=== PATIENT | female | born 1990 | race Caucasian/White ===

== ENCOUNTER 2021-01-13 07:16 | Inpatient (IN) | payer MEDICAID ==
[2021-01-13] MEDS ORDERED: Misoprostol 50 MCG (1/2 of 100 MCG) Tab VAG ONE (08:00)
[2021-01-13] MEDS ORDERED: Sodium Chloride 0.9% 10 ML Syringe FLUSH PRN ×2 (08:24→14:17)
[2021-01-13] MEDS ORDERED: ePHEDrine 50 MG/ML SDV IVPUSH PRN (08:29)
[2021-01-13] MEDS ORDERED: Lactated Ringers 1,000 ML IV ONE (08:29)
--- NOTE | 2021-01-13 08:34 | PCM.LDHP ---
L&D History of Present Illness - General Date of Service: 01/13/21 Admit Problem/Dx: Patient Status Order with Admit Dx/Problem 01/13/21 08:24 Patient Status [ADT] Routine Admission Diagnosis/Problem Admission Diagnosis/Problem Source of Information: Patient History Limitations: Reports: No Limitations - History of Present Illness Introduction:: 30 year old 40 5/7 weeks presents for planned induction of labor. She was brad today and she was up last night with contractions. adequate care Labs GBS neg ABO B pos HIV NEg Had covid vaccine during reactive NST this morning, Cat one strip Timing/Duration: Reports: minutes: (12) Location, : Reports: Abdomen Severity: Mild Improves with: Reports: None Worsens with: Reports: None - Related Data Allergies/Adverse Reactions: Allergies Allergy/AdvReac Type Severity Reaction Status Date / Time aspirin Allergy Facial Verified 01/13/21 08:11 Swelling ibuprofen Allergy Facial Verified 01/13/21 08:11 Swelling Home Medications: Home Meds Vits #93/Iron Fum/FA [ Formula Tablet] 1 each PO DAILY 01/13/21 [History] valACYclovir [Valtrex] 1,000 mg PO BID 01/13/21 [History] Past Medical History - Past Health History Medical/Surgical History: Denies Medical/Surgical History HEENT History: Reports: None Cardiovascular History: Reports: None Respiratory History: Reports: None Gastrointestinal History: Reports: None Genitourinary History: Reports: None 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: None, : 2 Para: 1 LMP (Approximate): (CORWIN 01/08/21) Musculoskeletal History: Reports: None Neurological History: Reports: Other (See Below) Other Neuro History: Aura headaches Psychiatric History: Reports: None Endocrine/Metabolic History: Reports: None Hematologic History: Reports: None Immunologic History: Reports: None Oncologic (Cancer) History: Reports: None Dermatologic History: Reports: None - Infectious Disease History Infectious Disease History: Reports: None - Past Surgical History Head Surgeries/Procedures: Reports: None HEENT Surgical History: Reports: None Cardiovascular Surgical History: Reports: None GI Surgical History: Reports: None Female Surgical History: Reports: None Neurological Surgical History: Reports: None Musculoskeletal Surgical History: Reports: None Social & Family History - Family History Family Medical History: Unobtainable - Tobacco Use Tobacco Use Status *Q: Never Tobacco User Second Hand Smoke Exposure: No - Caffeine Use Caffeine Use: Reports: Coffee - Recreational Drug Use Recreational Drug Use: No H&P Review of Systems - Review of Systems: Review Of Systems: See Below General: Reports: No Symptoms HEENT: Reports: No Symptoms Pulmonary: Reports: No Symptoms Cardiovascular: Reports: No Symptoms Gastrointestinal: Reports: No Symptoms Genitourinary: Reports: No Symptoms Musculoskeletal: Reports: No Symptoms Skin: Reports: No Symptoms Psychiatric: Reports: No Symptoms Neurological: Reports: No Symptoms Hematologic/Lymphatic: Reports: No Symptoms Immunologic: Reports: No Symptoms L&D Exam - Exam Exam: See Below - Vital Signs Vital Signs: Last Vital Signs Temp 97.8 F 01/13/21 07:46 Pulse 72 01/13/21 08:19 Resp 18 01/13/21 08:19 BP 116/61 01/13/21 08:19 Pulse Ox 96 01/13/21 08:19 Weight: 185 lb - OB Specific Contraction Duration (sec): 60 Contraction Frequency (min): 12 Contraction Intensity: Irritability Movement: Active Heart Tones: Present Heart Rate (FHR) Variability: Moderate (6-25 bmp) Presentation: Vertex - Jordan Score Jordan Score Cervix Position: Posterior Jordan Score Consistency: Soft Jordan Score Effacement: 51-70% Jordan Score Dilation: Closed (hard to reach cervix she is so far posterior) Jordan Score Infant's Station: -1 ,0 Jordan Score Total: 6 - Exam General: Alert, Oriented HEENT: PERRLA Neck: Supple Lungs: Clear to Auscultation, Normal Respiratory Effort Cardiovascular: Regular Rate, Regular Rhythm GI/Abdominal Exam: Normal Bowel Sounds Rectal Exam: Normal Exam Genitourinary: Normal external exam, Enlarged uterus Back Exam: Normal Inspection, Full Range of Motion Extremities: No Pedal Edema, Normal Capillary Refill Skin: Warm Neurological: Cranial Nerves Intact Psychiatric: Alert, Normal Affect, Normal Mood - Patient Data Lab Results Last 24 hrs: Laboratory Results - last 24 hr 01/13/21 Range/Units 07:41 WBC 9.8 (4.5-11.0) K/uL RBC 4.02 (3.30-5.50) M/uL Hgb 12.5 (12.0-15.0) g/dL Hct 36.2 (36.0-48.0) % MCV 90 (80-98) fL MCH 31 (27-31) pg MCHC 35 (32-36) % Plt Count 274 (150-400) K/uL Neut % (Auto) 72.2 H (36-66) % Lymph % (Auto) 18.4 L (24-44) % [place] % (Auto) 7.7 H (2-6) % Eos % (Auto) 1.4 L (2-4) % Baso % (Auto) 0.3 (0-1) % Result Diagrams: 01/13/21 07:41 - Problem List (1) Elective induction of labor planned SNOMED Code(s): 559608062 ICD Code: [id number] - Status: Acute Current Visit: Yes (2) SNOMED Code(s): 88096327 ICD Code: Z34.90 - ENCNTR FOR SUPRVSN OF NORMAL , UNSP, UNSP TRIMESTER Status: Acute Current Visit: Yes Qualifiers: Weeks of gestation: 40 weeks Qualified Code(s): Z3A.40 - 40 weeks gestation of Problem List Initiated/Reviewed/Updated: Yes Orders Last 24hrs: Active Orders 24 hr Category Date Time Status Patient Status [ADT] Routine ADT 01/13/21 08:24 Ordered Antiembolic Devices [RC] .Routine Care 01/13/21 08:27 Ordered Communication Order [RC] ASDIRECTED Care 01/13/21 08:24 Ordered Communication Order [RC] ASDIRECTED Care 01/13/21 08:29 Ordered Heart Tones [RC] PER UNIT ROUTINE Care 01/13/21 08:24 Ordered Non Stress Test [RC] Click to Edit Care 01/13/21 08:24 Ordered Insert Urinary Catheter [OM.PC] ASDIRECTED Care 01/13/21 08:30 Ordered Local Anesthetic Infusion Pump [RC] ASDIRECTED Care 01/13/21 08:29 Ordered Notify Provider Vital Signs [RC] PRN Care 01/13/21 08:24 Ordered Notify Provider [RC] PRN Care 01/13/21 08:24 Ordered PCEA Epidural [RC] ASDIRECTED Care 01/13/21 08:29 Ordered PCEA Epidural [RC] ASDIRECTED Care 01/13/21 08:29 Ordered Up ad Brandy [RC] ASDIRECTED Care 01/13/21 08:24 Ordered Urinary Catheter Assessment [RC] ASDIRECTED Care 01/13/21 08:29 Ordered VTE/DVT Education [RC] Click to Edit Care 01/13/21 08:27 Ordered Vital Signs [RC] PER UNIT ROUTINE Care 01/13/21 08:24 Ordered Clear Liquid Diet [DIET] Diet 01/13/21 Lunch Ordered CORONAVIRUS COVID-19, VICKI Routine Lab 01/13/21 07:41 Ordered DRUG SCREEN, URINE [URCHEM] Routine Lab 01/13/21 07:41 Ordered UA W/MICROSCOPIC [URIN] Routine Lab 01/13/21 07:41 Ordered Lactated Ringers [Ringers, Lactated] 1,000 ml Med 01/13/21 08:29 Ordered IV .BOLUS Oxytocin/Normal Saline [Pitocin in NS 20 Units/1,000 ML Med 01/13/21 08:28 Ordered ] 20 unit in 1,000 ml IV ONETIME Sodium Chloride 0.9% [Saline Flush] Med 01/13/21 08:24 Ordered 10 ml FLUSH ASDIRECTED PRN ePHEDrine [ePHEDrine sulfate] Med 01/13/21 08:29 Ordered 10 mg IVPUSH ASDIRECTED PRN DVT/VTE Prophylaxis Reflex [OM.PC] Routine Oth 01/13/21 08:24 Ordered Epidural Catheter Management [OM.PC] Urgent Oth 01/13/21 08:29 Ordered Saline Lock Insert [OM.PC] Routine Oth 01/13/21 08:24 Ordered Resuscitation Status Routine Resus Stat 01/13/21 08:24 Ordered Medication Orders Oxytocin/Sodium Chloride (Pitocin In Ns 20 Units/1,000 Ml) 20 unit in 1,000 mls @ 999 mls/hr IV ONETIME ONE; Protocol Stop: 01/13/21 09:28 Sodium Chloride (Sodium Chloride 0.9% 10 Ml Syringe) 10 ml FLUSH ASDIRECTED PRN PRN Reason: Keep Vein Open Assessment/Plan Comment:: 01/13/21 30 year old presents for induction of labor. She is 40 5/7 weeks today and has been brad since last night. Baby is low and she wants to be done. HGB 12.8 PLT 236 Had covid vaccine plans to breast feed Plan Miso 50 mcg this morning, reassess at noon Wants an epidural late Plan for vaginal delivery
[2021-01-13] MEDS ORDERED: Ondansetron 4 MG/2 ML SDV IVPUSH PRN (11:05)
--- NOTE | 2021-01-13 12:12 | PCM.PNLD ---
Labor Progress Note - VS & Meds Vital Signs: Last Vital Signs Temp 97.2 F 01/13/21 11:07 Pulse 84 01/13/21 11:07 Resp 18 01/13/21 11:07 BP 125/58 L 01/13/21 11:07 Pulse Ox 99 01/13/21 11:07 Active Medications: Current Medications Ephedrine Sulfate (Ephedrine 50 Mg/Ml Sdv) 10 mg IVPUSH ASDIRECTED PRN PRN Reason: Hypotension Ondansetron HCl (Ondansetron 4 Mg/2 Ml Sdv) 4 mg IVPUSH Q4H PRN PRN Reason: Nausea/Vomiting Last Admin: 01/13/21 11:14 Dose: 4 mg Documented by: Sodium Chloride (Sodium Chloride 0.9% 10 Ml Syringe) 10 ml FLUSH ASDIRECTED PRN PRN Reason: Keep Vein Open Discontinued Medications Oxytocin/Sodium Chloride (Pitocin In Ns 20 Units/1,000 Ml) 20 unit in 1,000 mls @ 999 mls/hr IV ONETIME ONE; Protocol Stop: 01/13/21 11:00 Lactated Ringer's (Ringers, Lactated) 1,000 mls @ 999 mls/hr IV .BOLUS ONE Stop: 01/13/21 09:29 Misoprostol (Misoprostol 50 Mcg (1/2 Of 100 Mcg) Tab) 50 mcg VAG ONETIME ONE Stop: 01/13/21 08:01 Last Admin: 01/13/21 08:15 Dose: 50 mcg Documented by: - Uterine Contractions Uterine Monitoring Mode: External [place] Contraction Frequency (min): 1-5.5 Contraction Duration (sec): 40-60 Contraction Intensity: Mild Uterine Resting Tone: Soft - Monitoring Monitor Mode: Doppler/Auscultation Heart Rate (FHR) Baseline: 130 Heart Rate (FHR) Variability: Moderate (6-25 bmp) Accelerations: Present, 15x15 Decelerations: None Strip Review: Category I - Vaginal Exam Dilation (cm): 3-4 Effacement (Percent): 80 Station: 0 Cervical Position: Anterior Sterile Vaginal Exam Performed By: Amelia Kemp Vaginal Exam Comment: nice progress since this morning - Labor Progress (Free Text) Labor Progress: Cat one strip active labor coping with contractions membranes stripped AROM at 1500 if no rupture on her own plan for vaginal delivery
[2021-01-13] MEDS ORDERED: Lactated Ringers 1,000 ML IV SCH (13:45)
[2021-01-13] MEDS ORDERED: diphenhydrAMINE 50 MG/ML SDV IVPUSH PRN ×2 (14:17)
[2021-01-13] MEDS ORDERED: Naloxone 0.4 MG/ML SDV IVPUSH PRN (14:17)
[2021-01-13] MEDS ORDERED: Ropivacaine 200 MG in Premix Bag 1 BAG EPIDUR SCH (14:30)
--- NOTE | 2021-01-13 15:22 | PCM.PNLD ---
Labor Progress Note - VS & Meds Vital Signs: Last Vital Signs Temp 97.2 F 01/13/21 11:07 Pulse 86 01/13/21 15:10 Resp 18 01/13/21 15:10 BP 113/68 01/13/21 15:10 Pulse Ox 100 01/13/21 15:10 Active Medications: Current Medications Diphenhydramine HCl (Diphenhydramine 50 Mg/Ml Sdv) 25 mg IVPUSH Q6H PRN PRN Reason: Itching Diphenhydramine HCl (Diphenhydramine 50 Mg/Ml Sdv) 50 mg IVPUSH Q6H PRN PRN Reason: Itching Ephedrine Sulfate (Ephedrine 50 Mg/Ml Sdv) 10 mg IVPUSH ASDIRECTED PRN PRN Reason: Hypotension Lactated Ringer's (Ringers, Lactated) 1,000 mls @ 100 mls/hr IV ASDIRECTED ISAÍAS Last Admin: 01/13/21 13:56 Dose: 100 mls/hr Documented by: Ropivacaine 200 mg/ Premix 100 mls @ 0 mls/hr EPIDUR ASDIRECTED ISAÍAS Naloxone HCl (Naloxone 0.4 Mg/Ml Sdv) 0.1 mg IVPUSH ASDIRECTED PRN PRN Reason: Oversedation Ondansetron HCl (Ondansetron 4 Mg/2 Ml Sdv) 4 mg IVPUSH Q4H PRN PRN Reason: Nausea/Vomiting Last Admin: 01/13/21 11:14 Dose: 4 mg Documented by: Sodium Chloride (Sodium Chloride 0.9% 10 Ml Syringe) 10 ml FLUSH ASDIRECTED PRN PRN Reason: Keep Vein Open Sodium Chloride (Sodium Chloride 0.9% 10 Ml Syringe) 10 ml FLUSH ASDIRECTED PRN PRN Reason: Keep Vein Open Discontinued Medications Lactated Ringer's (Ringers, Lactated) 1,000 mls @ 999 mls/hr IV .BOLUS ONE Stop: 01/13/21 09:29 Last Admin: 01/13/21 12:55 Dose: 999 mls/hr Documented by: Oxytocin/Sodium Chloride (Pitocin In Ns 20 Units/1,000 Ml) 20 unit in 1,000 mls @ 999 mls/hr IV ONETIME ONE; Protocol Stop: 01/13/21 14:30 Misoprostol (Misoprostol 50 Mcg (1/2 Of 100 Mcg) Tab) 50 mcg VAG ONETIME ONE Stop: 01/13/21 08:01 Last Admin: 01/13/21 08:15 Dose: 50 mcg Documented by: - Uterine Contractions Uterine Monitoring Mode: External [place] Contraction Frequency (min): 1.5-2.5 Contraction Duration (sec): 30-70 Contraction Intensity: Moderate Uterine Resting Tone: Soft - Monitoring Monitor Mode: Doppler/Auscultation Heart Rate (FHR) Baseline: 130 Heart Rate (FHR) Variability: Moderate (6-25 bmp) Accelerations: Present, 15x15 Decelerations: None Strip Review: Category I - Vaginal Exam Dilation (cm): 5-6 Effacement (Percent): 80 Station: 0 Cervical Position: Anterior Sterile Vaginal Exam Performed By: Amelia Kemp Vaginal Exam Comment: AROM clear fluid blood show - Labor Progress (Free Text) Labor Progress: epidural placed doing great
[2021-01-13] MEDS ORDERED: Ropivacaine 100 ML ONE (15:30)
--- NOTE | 2021-01-13 15:48 | ANES ---
DATE OF SERVICE: 01/13/2021 INDICATION: Samira is a 30-year-old female in Obstetric Unit. I was requested by Amelia Kemp to consult patient for labor epidural placement. Upon review of patient's history and procedure, she was okay to proceed and consent was received. DESCRIPTION OF PROCEDURE: I had her seated at the edge of the bed. Betadine prep x3 to lumbar region. Sterile drape was placed, 1% lidocaine skin wheal as well as deep at the L3- L4 region. 17-gauge Tuohy was placed to loss of resistance. Negative CSF, negative heme, negative paresthesia. I placed a silicone catheter to 13 cm. Test dose was given through that catheter 3 mL of 1.5% lidocaine and 1:200,000 epinephrine. The catheter was then secured. I placed her in a supine position and dosed her with 12 mL of 0.2% ropivacaine and began an infusion of that same 0.2% ropivacaine. The patient tolerated procedure quite well. Please refer to nurse's notes for vital signs and neuro status, which were unchanged and within normal limits. Again, she tolerated it quite well. Xiang Wellington CRNA /[id number]
[2021-01-13] MEDS ORDERED: Hydrocortisone 2.5% Crm 30 GM Tube TOP PRN (16:34)
--- NOTE | 2021-01-13 16:47 | PCM.DEL ---
L & D Note - General Info Date of Service: 01/13/21 Mother's Due Date: 01/08/21 - Delivery Note Labor: Spontaneous Cervical Ripening Method: Misoprostil Delivery Outcome: Livebirth Delivery Method: Spontaneous Vaginal Delivery-Single Infant Delivery Mode: Spontaneous Presentation: Vertex Nuchal Cord: None Anesthesia Type: Epidural Amniotic Fluid Description: Clear Episiotomy Type: None Laceration: None Placenta: Intact, Spontaneous Cord: 3 Vessels Resuscitation Needed: No [place]: Bulb Syringe, Stimulated, Warmed, [place] Used Provider: Amelia Kemp Score 1 min: 8 (color) Score 5 min: 9 (color) Second Stage Interventions: Reports: Laboring Down, Pushing Effectively Delivery Comments (Free Text/Narrative):: This 30 year old G2 now P2 who is 40 5/7 weeks gestation delivered via a viable male infant over an intact perineum at 1607 in LEÓN position with his right hand presenting. He was placed on mother's chest where he cried s pontaneously. He was dried and stimulated, Delayed cord clamping was done and active management of the third stage was also used. The placenta was expressed spontaneously intact, Ham. Three vessel cord 's of 8 and 9 all for color. No lacerations of the perineum, vagina, rectum or cervix were found. EBL 50cc weight 7-1 Mother and baby to post in stable condition First stage 1181-4494 Second stage 5677-5102 Third stage 4255-9026 Induction Criteria - Jordan Score Jordan Score Dilation: Closed Jordan Score Effacement: 60-70% Jordan Score 's Station: -1 ,0 Jordan Score Consistency: Soft Jordan Score Cervix Position: Midposition Jordan Score Total: 7 Jordan Score Presenting Part: Reports: Cephalic - Induction Gestational Age >/= 39 wks: Yes Estimated Pelvis: Reports: Adequate Reassuring Monitoring Strip: Yes Absence of Tachy Systole: Yes - General Info Date of Service: 01/13/21 Admission Dx/Problem (Free Text): Patient Status Order with Admit Dx/Problem 01/13/21 08:24 Patient Status [ADT] Routine Admission Diagnosis/Problem Admission Diagnosis/Problem Functional Status: Reports: Pain Controlled - Review of Systems General: Reports: No Symptoms HEENT: Reports: No Symptoms Pulmonary: Reports: No Symptoms Cardiovascular: Reports: No Symptoms Gastrointestinal: Reports: No Symptoms Genitourinary: Reports: No Symptoms Musculoskeletal: Reports: No Symptoms Skin: Reports: No Symptoms Neurological: Reports: No Symptoms Psychiatric: Reports: No Symptoms - Patient Data Vitals - Most Recent: Last Vital Signs Temp 97.2 F 01/13/21 11:07 Pulse 69 01/13/21 15:25 Resp 18 01/13/21 15:25 BP 115/57 L 01/13/21 15:25 Pulse Ox 100 01/13/21 15:25 Weight - Most Recent: 185 lb I&O - Last 24 Hours: Intake & Output 01/13/21 01/13/21 01/13/21 06:59 14:59 22:59 Intake Total 1119 Balance 1119 Lab Results Last 24 Hours: Laboratory Results - last 24 hr 01/13/21 01/13/21 01/13/21 Range/Units 07:41 07:41 07:41 WBC 9.8 (4.5-11.0) K/uL RBC 4.02 (3.30-5.50) M/uL Hgb 12.5 (12.0-15.0) g/dL Hct 36.2 (36.0-48.0) % MCV 90 (80-98) fL MCH 31 (27-31) pg MCHC 35 (32-36) % Plt Count 274 (150-400) K/uL Neut % (Auto) 72.2 H (36-66) % Lymph % (Auto) 18.4 L (24-44) % [place] % (Auto) 7.7 H (2-6) % Eos % (Auto) 1.4 L (2-4) % Baso % (Auto) 0.3 (0-1) % Urine Color Yellow (YELLOW) Urine Appearance Slightly cloudy A (CLEAR) Urine pH 7.0 (5.0-8.0) Ur Specific [place] >= 1.030 (1.008-1.030) Urine Protein Negative (NEGATIVE) mg/dL Urine Glucose (UA) Negative (NEGATIVE) mg/dL Urine Ketones Negative (NEGATIVE) mg/dL Urine Occult Blood Trace-intact H (NEGATIVE) Urine Nitrite Negative (NEGATIVE) Urine Bilirubin Negative (NEGATIVE) Urine Urobilinogen 0.2 (0.2-1.0) EU/dL Ur Leukocyte Esterase Trace H (NEGATIVE) Urine RBC 0-5 (0-5) Urine WBC 0-5 (0-5) Ur Epithelial Cells Moderate Amorphous Sediment Not seen Urine Bacteria Few Urine Mucus Moderate Urine Opiates Screen Negative (NEGATIVE) Ur Oxycodone Screen Negative (NEGATIVE) Urine Methadone Screen Negative (NEGATIVE) Ur Propoxyphene Screen Negative (NEGATIVE) Ur Barbiturates Screen Negative (NEGATIVE) Ur Tricyclics Screen Negative (NEGATIVE) Ur Phencyclidine Scrn Negative (NEGATIVE) Ur Amphetamine Screen Negative (NEGATIVE) U Methamphetamines Scrn Negative (NEGATIVE) Urine MDMA Screen Negative (NEGATIVE) U Benzodiazepines Scrn Negative (NEGATIVE) U Cocaine Metab Screen Negative (NEGATIVE) U Marijuana (THC) Screen Presumptive positive H (NEGATIVE) Med Orders - Current: Current Medications Diphenhydramine HCl (Diphenhydramine 50 Mg/Ml Sdv) 25 mg IVPUSH Q6H PRN PRN Reason: Itching Diphenhydramine HCl (Diphenhydramine 50 Mg/Ml Sdv) 50 mg IVPUSH Q6H PRN PRN Reason: Itching Ephedrine Sulfate (Ephedrine 50 Mg/Ml Sdv) 10 mg IVPUSH ASDIRECTED PRN PRN Reason: Hypotension Hydrocortisone (Hydrocortisone 2.5% Crm 30 Gm Tube) 1 gm TOP ASDIRECTED PRN PRN Reason: Itching Lactated Ringer's (Ringers, Lactated) 1,000 mls @ 100 mls/hr IV ASDIRECTED ISAÍAS Last Admin: 01/13/21 13:56 Dose: 100 mls/hr Documented by: Ropivacaine 200 mg/ Premix 100 mls @ 0 mls/hr EPIDUR ASDIRECTED ISAÍAS Naloxone HCl (Naloxone 0.4 Mg/Ml Sdv) 0.1 mg IVPUSH ASDIRECTED PRN PRN Reason: Oversedation Ondansetron HCl (Ondansetron 4 Mg/2 Ml Sdv) 4 mg IVPUSH Q4H PRN PRN Reason: Nausea/Vomiting Last Admin: 01/13/21 11:14 Dose: 4 mg Documented by: Sodium Chloride (Sodium Chloride 0.9% 10 Ml Syringe) 10 ml FLUSH ASDIRECTED PRN PRN Reason: Keep Vein Open Sodium Chloride (Sodium Chloride 0.9% 10 Ml Syringe) 10 ml FLUSH ASDIRECTED PRN PRN Reason: Keep Vein Open Witch Vilma (Witch Vilma Medicated Pads 100/Jar) 1 pad TOP ASDIRECTED ONE Stop: 01/13/21 16:35 Discontinued Medications Lactated Ringer's (Ringers, Lactated) 1,000 mls @ 999 mls/hr IV .BOLUS ONE Stop: 01/13/21 09:29 Last Admin: 01/13/21 12:55 Dose: 999 mls/hr Documented by: Oxytocin/Sodium Chloride (Pitocin In Ns 20 Units/1,000 Ml) 20 unit in 1,000 mls @ 999 mls/hr IV ONETIME ONE; Protocol Stop: 01/13/21 14:30 Ropivacaine (Naropin 0.2%) Confirm Administered Dose 100 mls @ as directed .ROUTE .STK-MED ONE Stop: 01/13/21 15:31 Misoprostol (Misoprostol 50 Mcg (1/2 Of 100 Mcg) Tab) 50 mcg VAG ONETIME ONE Stop: 01/13/21 08:01 Last Admin: 01/13/21 08:15 Dose: 50 mcg Documented by: - Exam General: Alert, Oriented HEENT: Pupils Equal Neck: Supple Lungs: Clear to Auscultation, Normal Respiratory Effort Cardiovascular: Regular Rate, Regular Rhythm GI/Abdominal Exam: Normal Bowel Sounds, Soft, Non-Tender, No Organomegaly, No Distention, No Abnormal Bruit (Female) Exam: Normal External Exam, Cervical Dilatation, Enlarged Uterus, Vaginal Bleeding Back Exam: Normal Inspection Extremities: Non-Tender, No Pedal Edema, Normal Capillary Refill Skin: Warm, Dry, Intact Wound/Incisions: Healing Well Neurological: No New Focal Deficit Psy/Mental Status: Alert, Normal Affect, Normal Mood - Problem List & Annotations (1) Elective induction of labor planned SNOMED Code(s): 729315104 Code(s): AVQ3973 - Status: Acute Current Visit: Yes (2) SNOMED Code(s): 85378487 Code(s): Z34.90 - ENCNTR FOR SUPRVSN OF NORMAL , UNSP, UNSP TRIMESTER Status: Acute Current Visit: Yes Qualifiers: Weeks of gestation: 40 weeks Qualified Code(s): Z3A.40 - 40 weeks gestation of (3) Vaginal delivery SNOMED Code(s): 687755003 Code(s): O80 - ENCOUNTER FOR FULL-TERM UNCOMPLICATED DELIVERY Status: Acute Current Visit: Yes - Problem List Review Problem List Initiated/Reviewed/Updated: Yes - My Orders Last 24 Hours: My Active Orders 01/13/21 08:24 Communication Order [RC] ASDIRECTED Heart Tones [RC] PER UNIT ROUTINE Non Stress Test [RC] Click to Edit Notify Provider Vital Signs [RC] PRN Notify Provider [RC] PRN Up ad Brandy [RC] ASDIRECTED Vital Signs [RC] PER UNIT ROUTINE Sodium Chloride 0.9% [Saline Flush] 10 ml FLUSH ASDIRECTED PRN DVT/VTE Prophylaxis Reflex [OM.PC] Routine Saline Lock Insert [OM.PC] Routine Resuscitation Status Routine 01/13/21 08:27 Antiembolic Devices [RC] .Routine VTE/DVT Education [RC] Click to Edit 01/13/21 08:29 Communication Order [RC] ASDIRECTED Local Anesthetic Infusion Pump [RC] ASDIRECTED PCEA Epidural [RC] ASDIRECTED Urinary Catheter Assessment [RC] ASDIRECTED ePHEDrine [ePHEDrine sulfate] 10 mg IVPUSH ASDIRECTED PRN Epidural Catheter Management [OM.PC] Urgent 01/13/21 08:30 Insert Urinary Catheter [OM.PC] ASDIRECTED 01/13/21 11:05 Ondansetron [Zofran] 4 mg IVPUSH Q4H PRN 01/13/21 Lunch Clear Liquid Diet [DIET] 01/13/21 13:45 Lactated Ringers [Ringers, Lactated] 1,000 ml IV ASDIRECTED 01/13/21 16:34 Patient Status [ADT] Routine Vital Signs [RC] PFP Benzocaine [Rzbw-F-Mcgqjfd 20% [place]] See Dose Instructions TOP Q4H ONE Hydrocortisone [Proctozone-HC 2.5% Crm] 1 gm TOP ASDIRECTED PRN Lanolin [Lansinoh HPA] 1 gm TOP ASDIRECTED ONE witch Vilma [Tucks] 1 pad TOP ASDIRECTED ONE Assess Uterine Involution [WOMSER] Per Unit Routine 01/13/21 16:36 Perineal Care [OM.PC] Per Unit Routine Peripheral IV Discontinue [OM.PC] Routine Sitz Bath [OM.PC] Per Unit Routine 01/13/21 Dinner Regular Diet [DIET] 01/14/21 05:11 CBC W/O DIFF,HEMOGRAM [HEME] AM - Assessment Assessment:: 01/13/21 30 year old without complications - Plan Plan:: 01/13/21 30 year old presents for induction of labor. She is 40 5/7 weeks today and has been brad since last night. Baby is low and she wants to be done. HGB 12.8 PLT 236 Had covid vaccine plans to breast feed Plan Miso 50 mcg this morning, reassess at noon Wants an epidural late Plan for vaginal delivery 01/13/21 routine cares support 24-48 hour stay
[2021-01-13] MEDS ORDERED: Acetaminophen 325 MG Tab, 50 Tab Bulk Bottle PO PRN (16:59)
[2021-01-13] MEDS ORDERED: Benzocaine 20% Top Spray 56 GM Bottle TOP ONE (17:00)
[2021-01-13] MEDS ORDERED: Witch Hazel Medicated Pads 100/Jar TOP PRN (17:00)
[2021-01-13] MEDS ORDERED: Witch Hazel Medicated Pads 100/Jar TOP ONE (17:00)
[2021-01-13] MEDS ORDERED: Lanolin 100% Cream 40 GM Tube TOP ONE ×2 (17:00)
[2021-01-13] MEDS ORDERED: Benzocaine 20% Top Spray 56 GM Bottle TOP PRN (17:00)
[2021-01-13] MEDS ORDERED: Lanolin 100% Cream 40 GM Tube TOP PRN (17:00)
[2021-01-13] MEDS: Acetaminophen 325 MG Tab PO PRN ×2 (17:54→21:26)
[2021-01-14] MEDS: Acetaminophen 325 MG Tab PO PRN (04:33)
--- NOTE | 2021-01-14 08:36 | PCM.PNPP ---
- General Info Date of Service: 01/14/21 Functional Status: Reports: Pain Controlled - Review of Systems General: Reports: No Symptoms HEENT: Reports: No Symptoms Pulmonary: Reports: No Symptoms Cardiovascular: Reports: No Symptoms Gastrointestinal: Reports: No Symptoms Genitourinary: Reports: No Symptoms Musculoskeletal: Reports: No Symptoms Skin: Reports: No Symptoms Neurological: Reports: No Symptoms Psychiatric: Reports: No Symptoms - General Info Date of Service: 01/14/21 - Patient Data Vital Signs - Most Recent: Last Vital Signs Temp 36.8 C 01/14/21 03:00 Pulse 68 01/14/21 03:00 Resp 16 01/14/21 03:00 BP 128/66 01/14/21 03:00 Pulse Ox 99 01/14/21 03:00 Weight - Most Recent: 83.915 kg I&O - Last 24 Hours: Intake & Output 01/13/21 01/14/21 01/14/21 22:59 06:59 14:59 Intake Total 500 Output Total 150 Balance -150 500 Lab Results - Last 24 Hours: Laboratory Results - last 24 hr 01/13/21 01/13/21 01/14/21 Range/Units 07:41 07:41 06:10 WBC 14.6 H (4.5-11.0) K/uL RBC 4.14 (3.30-5.50) M/uL Hgb 12.7 (12.0-15.0) g/dL Hct 37.4 (36.0-48.0) % MCV 90 (80-98) fL MCH 31 (27-31) pg MCHC 34 (32-36) % Plt Count 317 (150-400) K/uL Urine Color Yellow (YELLOW) Urine Appearance Slightly cloudy A (CLEAR) Urine pH 7.0 (5.0-8.0) Ur Specific Ariel >= 1.030 (1.008-1.030) Urine Protein Negative (NEGATIVE) mg/dL Urine Glucose (UA) Negative (NEGATIVE) mg/dL Urine Ketones Negative (NEGATIVE) mg/dL Urine Occult Blood Trace-intact H (NEGATIVE) Urine Nitrite Negative (NEGATIVE) Urine Bilirubin Negative (NEGATIVE) Urine Urobilinogen 0.2 (0.2-1.0) EU/dL Ur Leukocyte Esterase Trace H (NEGATIVE) Urine RBC 0-5 (0-5) Urine WBC 0-5 (0-5) Ur Epithelial Cells Moderate Amorphous Sediment Not seen Urine Bacteria Few Urine Mucus Moderate Urine Opiates Screen Negative (NEGATIVE) Ur Oxycodone Screen Negative (NEGATIVE) Urine Methadone Screen Negative (NEGATIVE) Ur Propoxyphene Screen Negative (NEGATIVE) Ur Barbiturates Screen Negative (NEGATIVE) Ur Tricyclics Screen Negative (NEGATIVE) Ur Phencyclidine Scrn Negative (NEGATIVE) Ur Amphetamine Screen Negative (NEGATIVE) U Methamphetamines Scrn Negative (NEGATIVE) Urine MDMA Screen Negative (NEGATIVE) U Benzodiazepines Scrn Negative (NEGATIVE) U Cocaine Metab Screen Negative (NEGATIVE) U Marijuana (THC) Screen Presumptive positive H (NEGATIVE) Med Orders - Current: Current Medications Acetaminophen (Acetaminophen 325 Mg Tab, 50 Tab Bulk Bottle) 0 mg PO Q4H PRN PRN Reason: Pain Benzocaine (Benzocaine 20% Top Albert 56 Gm Bottle) 0 gm TOP Q4H PRN PRN Reason: perineal pain Diphenhydramine HCl (Diphenhydramine 50 Mg/Ml Sdv) 25 mg IVPUSH Q6H PRN PRN Reason: Itching Diphenhydramine HCl (Diphenhydramine 50 Mg/Ml Sdv) 50 mg IVPUSH Q6H PRN PRN Reason: Itching Emollient Ointment (Lanolin 100% Cream 40 Gm Tube) 0 gm TOP ASDIRECTED PRN PRN Reason: SORE NIPPLES Hydrocortisone (Hydrocortisone 2.5% Crm 30 Gm Tube) 0 gm TOP ASDIRECTED PRN PRN Reason: Itching Naloxone HCl (Naloxone 0.4 Mg/Ml Sdv) 0.1 mg IVPUSH ASDIRECTED PRN PRN Reason: Oversedation Ondansetron HCl (Ondansetron 4 Mg/2 Ml Sdv) 4 mg IVPUSH Q4H PRN PRN Reason: Nausea/Vomiting Last Admin: 01/13/21 11:14 Dose: 4 mg Documented by: Sodium Chloride (Sodium Chloride 0.9% 10 Ml Syringe) 10 ml FLUSH ASDIRECTED PRN PRN Reason: Keep Vein Open Witch Vilma (Witch Vilma Medicated Pads 100/Jar) 1 pad TOP ASDIRECTED PRN PRN Reason: to perineum Last Admin: 01/13/21 18:22 Dose: 1 case Documented by: Discontinued Medications Acetaminophen (Acetaminophen 325 Mg Tab) 650 mg PO Q4H PRN PRN Reason: Pain (moderate 4-6) Last Admin: 01/14/21 04:33 Dose: 650 mg Documented by: Benzocaine (Benzocaine 20% Top Albert 56 Gm Bottle) 0 gm TOP Q4H ONE Stop: 01/13/21 17:01 Last Admin: 01/13/21 18:21 Dose: 1 applic Documented by: Emollient Ointment (Lanolin 100% Cream 40 Gm Tube) 1 gm TOP ASDIRECTED ONE Stop: 01/13/21 17:01 Emollient Ointment (Lanolin 100% Cream 40 Gm Tube) 0 gm TOP ASDIRECTED ONE Stop: 01/13/21 17:01 Last Admin: 01/13/21 18:21 Dose: 1 applic Documented by: Ephedrine Sulfate (Ephedrine 50 Mg/Ml Sdv) 10 mg IVPUSH ASDIRECTED PRN PRN Reason: Hypotension Lactated Ringer's (Ringers, Lactated) 1,000 mls @ 999 mls/hr IV .BOLUS ONE Stop: 01/13/21 09:29 Last Admin: 01/13/21 12:55 Dose: 999 mls/hr Documented by: Oxytocin/Sodium Chloride (Pitocin In Ns 20 Units/1,000 Ml) 20 unit in 1,000 mls @ 999 mls/hr IV ONETIME ONE; Protocol Stop: 01/13/21 14:30 Last Admin: 01/13/21 16:10 Dose: 125 mls/hr, 125 mls/hr Documented by: Lactated Ringer's (Ringers, Lactated) 1,000 mls @ 100 mls/hr IV ASDIRECTED [facility] Last Admin: 01/13/21 13:56 Dose: 100 mls/hr Documented by: Ropivacaine 200 mg/ Premix 100 mls @ 0 mls/hr EPIDUR ASDIRECTED [facility] Ropivacaine (Naropin 0.2%) Confirm Administered Dose 100 mls @ as directed .ROUTE .STK-MED ONE Stop: 01/13/21 15:31 Misoprostol (Misoprostol 50 Mcg (1/2 Of 100 Mcg) Tab) 50 mcg VAG ONETIME ONE Stop: 01/13/21 08:01 Last Admin: 01/13/21 08:15 Dose: 50 mcg Documented by: Ricky Esparza (Ricky Esparza Medicated Pads 100/Jar) 1 pad TOP ASDIRECTED ONE Stop: 01/13/21 17:01 Last Admin: 01/13/21 17:56 Dose: 1 applic Documented by: - Interaction Disposition, : in Room with Family Infant Interaction: Holding Infant Feeding: Breastfed Infant; Nursed Well, Encouraged to Breastfeed Support Person: Significant Other - Recovery Exam Fundal Tone: Firm Fundal Level: At Umbilicus Fundal Placement: Midline Lochia Amount: Moderate Lochia Color: Rubra/Red Perineum Description: Intact, Minimal Bruising/Swelling Episiotomy/Laceration: None - Exam General: Alert, Oriented, Cooperative HEENT: Pupils Equal, Pupils Reactive, EOMI, Mucous Membr. Moist/[place] Neck: Supple Lungs: Clear to Auscultation, Normal Respiratory Effort Cardiovascular: Regular Rate, Regular Rhythm GI/Abdominal Exam: Normal Bowel Sounds, Soft, Non-Tender, No Organomegaly, No Distention, No Abnormal Bruit, No Mass, Pelvis Stable Extremities: Normal Inspection, Normal Range of Motion, Non-Tender, No Pedal Edema, Normal Capillary Refill Skin: Warm, Dry, Intact Neurological: No New Focal Deficit Psy/Mental Status: Alert, Normal Affect, Normal Mood - Problem List & Annotations (1) Vaginal delivery SNOMED Code(s): 757053817 Code(s): O80 - ENCOUNTER FOR FULL-TERM UNCOMPLICATED DELIVERY Status: Acute Current Visit: Yes - Problem List Review Problem List Initiated/Reviewed/Updated: Yes - Assessment Assessment:: 01/13/21 30 year old without complications 01/14/2021 without complications day one Fundus firm and bleeding decreasing Hgb stable VSS Voiding and passing gas well Desires discharge home at 24hrs - Plan Plan:: 01/13/21 30 year old presents for induction of labor. She is 40 5/7 weeks today and has been brad since last night. Baby is low and she wants to be done. HGB 12.8 PLT 236 Had covid vaccine plans to breast feed Plan Miso 50 mcg this morning, reassess at noon Wants an epidural late Plan for vaginal delivery 01/13/21 routine cares support 24-48 hour stay 01/14/2021 Continue routine cares Continue to support and encourage Discharge home today To see Amelia in six weeks for visit
[2021-01-14 16:52] VITALS: BP 124/63; PULSE 58
== END 2021-01-14 17:16 | disposition home or self-care (01) | DRG 807 ==
LOC: JP.OBCHECK 07:16 → JP.OB 07:27 → OBSVTOIN 16:07 → JP.OB 16:07 → JP.MS 19:45
PROVIDERS: ADMIT Nurse Practitioner Family; ATTEND Nurse Practitioner Family
PROC: 10E0XZZ Delivery of Products of Conception, External Approach (ICD-10-PCS; principal; 2021-01-13)
PROC: 10907ZC Drainage of Amniotic Fluid, Therapeutic from Products of Conception, Via Natural or Artificial Opening (ICD-10-PCS; 2021-01-13)
PROC: 3E0P7VZ Introduction of Hormone into Female Reproductive, Via Natural or Artificial Opening (ICD-10-PCS; 2021-01-13)
PROC: 3E0R3BZ Introduction of Anesthetic Agent into Spinal Canal, Percutaneous Approach (ICD-10-PCS; 2021-01-13)
PROC: 00HU33Z Insertion of Infusion Device into Spinal Canal, Percutaneous Approach (ICD-10-PCS; 2021-01-13)
DX: O48.0 Post-term pregnancy (principal); Z37.0 Single live birth; Z3A.40 40 weeks gestation of pregnancy; Z88.6 Allergy status to analgesic agent; Z79.899 Other long term (current) drug therapy
CPT/HCPCS: 36415; 80305-QW; 81001; 85025; 85027; A9270-GY; J2405; J2590; J2795; J7120

== ENCOUNTER 2023-08-10 22:04 | Emergency (ER) | payer MEDICAID ==
[2023-08-10 22:40] VITALS: PULSE 54
[2023-08-10 23:32] VITALS: BP 102/56
[2023-08-10 23:36] LABS: BASOPHILS ABSOLUTE AUTO 0.04 K/uL (0.00-0.10); BASOPHILS PERCENT AUTO 0.5 % (0.1-1.3); EOSINOPHILS ABSOLUTE AUTO 0.05 K/uL (0.00-0.40); EOSINOPHILS PERCENT AUTO 0.6 % (0.0-5.4); HEMATOCRIT 34.1 % (34.3-46.0); HEMOGLOBIN 11.7 g/dL (11.2-15.5); IMMATURE GRAN ABSOLUTE AUTO 0.02 K/uL (0.00-0.23); IMMATURE GRAN PERCENT AUTO 0.2 % (0.0-0.7); LYMPHOCYTES ABSOLUTE AUTO 2.27 K/uL (0.8-3.3); LYMPHOCYTES PERCENT AUTO 26.1 % (11.4-47.7); MEAN CORPUSCULAR HEMOGLOBIN 30.5 pg (31.6-35.5); MEAN CORPUSCULAR HGB CONC 34.3 g/dL (31.6-35.5); MONOCYTES PERCENT AUTO 6.9 % (3.3-12.6); NEUTROPHILS ABSOLUTE AUTO 5.72 K/uL (1.0-7.6); NEUTROPHILS PERCENT AUTO 65.7 % (40.0-78.1); PLATELET COUNT,PLT 297 K/uL (130-375); RED BLOOD CELL COUNT 3.83 M/uL (3.77-5.24); WHITE BLOOD CELL COUNT,WBC 8.7 K/uL (3.2-11.0)
[2023-08-11 00:03] LABS: A/G RATIO 1.3 (1.2-2.2); ALANINE AMINOTRANSFERASE,ALT 18 U/L (12-78); ALBUMIN 3.5 g/dL (3.4-5.0); ALKALINE PHOSPHATASE 52 U/L (46-116); ANION GAP 10.5 mmol/L (5.0-14.0); ASPARTATE AMNIOTRANSFERASE,AST 15 U/L (15-37); BILIRUBIN TOTAL 0.3 mg/dL (0.2-1.0); BLOOD UREA NITROGEN,BUN 12 mg/dL (7-18); CARBON DIOXIDE,CO2 30 mmol/L (21-32); CHLORIDE,CL 102 mmol/L (100-108); CREATININE 0.9 mg/dL (0.6-1.0); EST CRCL DRUG DOSING (CG) 84.79 mL/min; ESTIMATED GFR 88 mL/min (>60); GLUCOSE RANDOM 87 mg/dL (74-106); POTASSIUM,K 3.5 mmol/L (3.6-5.2); PROTEIN TOTAL,TP 6.2 g/dL (6.4-8.2); SODIUM,NA 139 mmol/L (140-148)
== END 2023-08-11 00:39 | disposition home or self-care (01) ==
LOC: JP.ED 22:04
DX: E86.0 Dehydration (principal); Z86.16 Personal history of COVID-19; Z88.5 Allergy status to narcotic agent
CPT/HCPCS: 36415; 80053; 85025; 99283; 99284

== ENCOUNTER 2024-11-03 11:44 | Emergency (ER) | payer MEDICAID ==
[2024-11-03 12:56] LABS: BASOPHILS ABSOLUTE AUTO 0.03 K/uL (0.00-0.10); BASOPHILS PERCENT AUTO 0.3 % (0.1-1.3); EOSINOPHILS PERCENT AUTO 0.1 % (0.0-5.4); HEMATOCRIT 39.5 % (34.3-46.0); HEMOGLOBIN 13.7 g/dL (11.2-15.5); IMMATURE GRAN ABSOLUTE AUTO 0.05 K/uL (0.00-0.23); IMMATURE GRAN PERCENT AUTO 0.5 % (0.0-0.7); LYMPHOCYTES ABSOLUTE AUTO 1.26 K/uL (0.8-3.3); LYMPHOCYTES PERCENT AUTO 11.6 % (11.4-47.7); MEAN CORPUSCULAR HEMOGLOBIN 31.3 pg (31.6-35.5); MEAN CORPUSCULAR HGB CONC 34.7 g/dL (31.6-35.5); MEAN CORPUSCULAR VOLUME 90.2 fL (81.4-99.0); MONOCYTES ABSOLUTE AUTO 0.63 K/uL (0.20-0.90); MONOCYTES PERCENT AUTO 5.8 % (3.3-12.6); NEUTROPHILS ABSOLUTE AUTO 8.84 K/uL (1.0-7.6); NEUTROPHILS PERCENT AUTO 81.7 % (40.0-78.1); PLATELET COUNT,PLT 392 K/uL (130-375); RED BLOOD CELL COUNT 4.38 M/uL (3.77-5.24); WHITE BLOOD CELL COUNT,WBC 10.8 K/uL (3.2-11.0)
[2024-11-03 12:57] LABS: EOSINOPHILS ABSOLUTE AUTO 0.01 K/uL (0.00-0.40)
[2024-11-03] MEDS: Ondansetron 4 MG Tab.DIS PO ONE (13:06)
[2024-11-03 13:11] LABS: CALCIUM 8.7 mg/dL (8.5-10.1); CREATININE 0.9 mg/dL (0.6-1.0); EST CRCL DRUG DOSING (CG) 83.23 mL/min; POTASSIUM,K 3.5 mmol/L (3.6-5.2)
[2024-11-03 13:13] LABS: ANION GAP 13.5 mmol/L (5.0-14.0)
[2024-11-03 14:21] VITALS: BP 112/84; PULSE 60
== END 2024-11-03 14:20 | disposition home or self-care (01) ==
LOC: JP.ED 11:44
DX: S06.0X0A Concussion without loss of consciousness, initial encounter (principal); R42 Dizziness and giddiness; Z88.8 Allergy status to other drugs, medicaments and biological substances; Z86.16 Personal history of COVID-19; V00.141A Fall from scooter (nonmotorized), initial encounter
CPT/HCPCS: 36415; 70450; 80048; 81025; 85025; 93005; 99284; Q0162

== ENCOUNTER 2025-02-22 21:37 | Emergency (ER) | payer MEDICAID ==
[2025-02-22 21:48] VITALS: BP 117/57; PULSE 71
== END 2025-02-22 23:00 ==
LOC: JP.ED 21:37
DX: J02.9 Acute pharyngitis, unspecified (principal); F17.210 Nicotine dependence, cigarettes, uncomplicated; Z88.6 Allergy status to analgesic agent
CPT/HCPCS: 87651; 99282; 99283